=== PATIENT | male | born 1970 | race African-American/Black ===

== ENCOUNTER 2016-12-06 13:47 | Emergency (ER) | payer BC, OTHER ==
[~2016-12-06] VITALS: Ht 180.3 cm; Wt 99.8 kg
[~2016-12-06 13:47] MED LIST: ALBUTEROL2.5 MG/0.1; CLEOCIN HCL300 MG PO; CLOTRIMAZOLE AF30 GM TP; PREDNISONE 20 M20 MG PO; PREDNISONE50 MG PO; VENTOLIN HFA 1818 GM INH
[2016-12-06] MEDS ORDERED: PREDNISONE 20 M20 MG PO (14:43)
[2016-12-06] MEDS ORDERED: ALBUTEROL2.5 MG/31 INH (15:50)
[2016-12-06] MEDS ORDERED: NEBULIZER MISCELL (15:50)
[2016-12-06] MEDS ORDERED: PROMETHAZINE-C120 ML PO (15:51)
[2016-12-06 15:52] VITALS: BP 127/84
== END 2016-12-06 16:03 | disposition home or self-care (01) ==
LOC: ER 13:47
DX: J44.1 Chronic obstructive pulmonary disease with (acute) exacerbation (principal); J45.901 Unspecified asthma with (acute) exacerbation; L25.9 Unspecified contact dermatitis, unspecified cause; F17.210 Nicotine dependence, cigarettes, uncomplicated; Z71.6 Tobacco abuse counseling

== ENCOUNTER 2020-12-31 18:30 | Emergency (ER) | payer OTHER ==
[~2020-12-31] VITALS: Ht 180.3 cm; Wt 81.7 kg
[~2020-12-31 18:30] MED LIST changes: +ALBUTEROL2.5 MG/31 INH; +NEBULIZER MISCELL; +PROMETHAZINE-C120 ML PO
[2020-12-31] MEDS ORDERED: TESSALON PERLE100 MG PO (21:26)
[2020-12-31 21:46] VITALS: BP 139/89
== END 2020-12-31 21:46 | disposition home or self-care (01) ==
LOC: ER 18:30
DX: R06.00 Dyspnea, unspecified (principal); Z20.822 Contact with and (suspected) exposure to COVID-19; F17.210 Nicotine dependence, cigarettes, uncomplicated; J45.909 Unspecified asthma, uncomplicated